=== PATIENT | male | born 1980 | race Caucasian/White ===

== ENCOUNTER 2018-10-17 17:39 | Emergency (ER) | payer MEDICAID, SELFPAY ==
[2018-10-17 17:44] VITALS: BP 150/101; PULSE 124; RESP 16; TEMP 37; O2SAT 99
--- NOTE | 2018-10-17 18:15 | ED.GENADUL_ITS ---
Discharge Plan Disposition Patient Disposition: HOME Condition: Stable Discharge Details Chief Complaint: DentalOral Clinical Impression: Dental infection Primary Care Provider: Christen Haley ED Provider: Charo Orozco Home Meds and New Rx's Prescriptions: New penicillin V potassium 500 mg tablet 500 mg PO QID Qty: 27 RF: 0 Discharge Instructions Instructions: Penicillin V (By mouth), Dental Abscess (ED) Additional Instructions: Encourage hydration. Tylenol and ibuprofen as needed for discomfort. May use hurricaine gel 4 times daily as needed. Please take the penicillin as prescribed, even if symptoms improve please take the entire course. If you develop fever/chills, swelling, increased pain or the new/worsening symptoms please seek care urgently once again. You will need follow-up with a dentist for definitive care, attached is a list of local dentist. Please call tomorrow to set up appointment. Discharge Data Discharge Date/Time-TO BE ENTERED AT DEPARTURE: 10/17/18 18:40 Medical Decision Making Patient is a 38-year-old male presents today with chief complaint of left upper dental pain. He reports that he has poor dentition has not been seen by dentist in several years. He denies any fevers or chills. States that this pain began yesterday. Has not taken anything for his discomfort. Has not had issue with this tooth historically. Patient has erythema and soft tissue swelling to the buccal side of the #10 tooth. There is no evidence of abscess, no fluctuance. He does have pain that radiates up into the left sinus. He is afebrile. He was noted to be tachycardic initially on evaluation with a heart rate of 124 patient admits that he is having panic attacks. After discussing treatment with the patient, his heart rate quickly came down he appears much more comfortable. I did offer Tylenol and ibuprofen which she is declined. Would prefer topical options, will order Hurricaine gel. Patient was given strict return precautions. I advised that he will need follow-up with a dentist for definitive care. Plan to treat with penicillin and treat pain topically. Patient was given strict return precautions. He will contact dentist tomorrow. List of local dentist is given to the patient. All questions and concerns were addressed and he is in agreement this plan. HPI General Mode of arrival: ambulatory . Date/Time Provider Initiated Documentation: 10/17/18 18:10 . Limitations to Documentation: no limitations . Information obtained by: patient and RN notes reviewed . History of Present Illness 38 year old M presents to the emergency department with the chief complaint of left upper dental pain, described as severe, with intensity ra angela at 10. Quality is described as stabbing, and is localized to the mouth. Patient reports no radiation. Patient started experiencing this day(s) (2) and it has been constant. No relieving factors improve symptom(s), No exacerbating factors reported . Patient notes no other symptoms.. Patient did receive the following treatments prior to arrival, none Related Data Home Medications Medication Instructions Recorded Confirmed penicillin V potassium 500 mg PO QID #27 tab 10/17/18 Previous Rx's Medication Instructions Recorded penicillin V potassium 500 mg PO QID #27 tab 10/17/18 Allergies Allergy/AdvReac Type Severity Reaction Status Date / Time chlordiazepoxide HCl Allergy Unverified 10/17/18 17:49 [From Librium] steroid Allergy Psychosis Uncoded 10/17/18 17:49 General Stated Complaint: DentalOral RUBEN: 4 Review of Systems Constitutional Reports as per HPI, Denies chills, Denies fatigue, Denies fever(s), Denies headache(s) and Denies poor appetite Eyes Denies change in vision and Denies irritation ENT Reports as per HPI, Reports dental pain, Denies dysphagia, Denies dizziness, Denies dry mouth, Denies ear discharge, Denies otalgia, Reports facial pain, Denies headache(s), Denies hoarseness, Denies lip swelling, Denies nasal congestion, Denies odynophagia and Denies sore throat Cardiovascular Reports as per HPI and Denies chest pain Respiratory Reports as per HPI and Denies cough Gastrointestinal Reports as per HPI, Denies dysphagia, Denies nausea, Denies odynophagia and Denies vomiting Integumentary/Breasts Reports as per HPI, Denies erythema, Denies rash and Denies skin pain Neurologic Reports as per HPI, Denies dizziness and Denies headache(s) Endocrine Denies fatigue Allergic/Immunologic Denies lip swelling [facility] Social History Smoking/Tobacco Use Status: Current-Occasional Tobacco Type: cigarettes Drug use: Daily Substance use type: marijuana Do you feel safe at home: Yes Do you feel safe in your relationship?: Yes Exam Const General: cooperative, healthy appearing, comfortable, no acute distress, well developed, well groomed and anxious Nutritional Appearance: average body habitus and well nourished Orientation: alert and awake [facility] Head: normal to inspection, normocephalic and atraumatic Ears: hearing grossly normal bilaterally, external ears normal and TM's normal bilaterally General nose exam: external nose normal and nares normal Face and sinus: normal facial exam, sinuses nontender and face symmetric Mouth: oral mucosae normal, lip normal, tongue normal, oropharynx normal, moist mucous membranes, no muffled voice, normal tongue, no trismus and No restricted motion Teeth and gingiva: abnormal tooth or associated gingiva (#10 tooth broken with swollen and erythematous gingiva) and poor dentition Throat: posterior oropharynx normal, tonsils normal and uvula midline Eyes General: appearance normal, both eyes and all related structures Neck Neck: normal visual inspection, full ROM, no lymphadenopathy, supple and no anterior neck swelling Resp Effort & Inspection: normal respiratory effort, able to speak in complete sentences and no respiratory distress Auscultation: clear to auscultation bilaterally, no rales, no rhonchi and no wheezes Cardio Rate: regular rate Rhythm: regular rhythm Heart Sounds: S1 normal and S2 normal Skin General skin exam: no rashes or lesions noted Trauma: no lacerations or abrasions Neuro General: alert and awake Cognition: normal cognition Speech: speech normal Gait: normal gait Psych Appearance: grossly normal and well kempt Mental Status: mental status grossly normal Speech and Movement: speech and movement normal Course Vital Signs Temperature 37 C 10/17/18 17:44 Pulse 124 H 10/17/18 17:44 Respiratory Rate 16 10/17/18 17:44 Blood Pressure 150/101 H 10/17/18 17:44 Pulse Oximetry 99 10/17/18 17:44 Temperature 37 C 10/17/18 17:44 Temperature Source Skin 10/17/18 17:44 Pulse 124 H 10/17/18 17:44 Respiratory Rate 16 10/17/18 17:44 Respiratory Effort Non-Labored 10/17/18 17:47 Blood Pressure 150/101 H 10/17/18 17:44 Pulse Oximetry 99 10/17/18 17:44 Oxygen Delivery Method Room Air 10/17/18 17:44 Oxygen Flow Rate 0 07/25/19 17:44 Pain Level 9 10/17/18 17:44
[2018-10-17] MEDS: Penicillin V POTASSIUM 500 MG TAB PO (18:33)
[2018-10-17] MEDS: Benzocaine 20% Gel 30 GM JAR MM (18:33)
== END 2018-10-17 18:40 | disposition home or self-care (01) ==
PROVIDERS: Emergency Provider Physician Assistant; PCP Nurse Practitioner
DX: K04.7 Periapical abscess without sinus (principal)
CPT/HCPCS: 99283

== ENCOUNTER 2019-02-12 11:30 | Outpatient (REF) | payer MEDICAID, SELFPAY ==
[2019-02-12 19:57] LABS: ALT 20 U/L (16-63); AST 12 U/L (15-37); Albumin 4.6 g/dL (3.4-5.0); Alkaline Phosphatase 61 U/L (46-116); Anion Gap 12.1 mmol/L (3-11); BUN 10 mg/dL (7-18); Bilirubin, Total 0.5 mg/dL (0.2-1.0); CO2 24.9 mmol/L (21.0-32.0); CREATININE 0.81 mg/dL (0.70-1.30); Calcium 9.4 mg/dL (8.5-10.1); Chloride 106 mmol/L (98-107); Glucose 97 mg/dL (74-106); Potassium 3.8 mmol/L (3.5-5.1); Sodium 143 mmol/L (136-145); TSH (W/Ref FT4) 0.83 uIU/mL (0.36-3.74); Total Protein 7.9 g/dL (6.4-8.2)
== END 2019-02-12 11:50 ==
LOC: NCHCN 11:30
PROVIDERS: PCP Nurse Practitioner; Visit Provider Nurse Practitioner
DX: F41.9 Anxiety disorder, unspecified (principal)
CPT/HCPCS: 80053; 84443

== ENCOUNTER 2021-02-22 16:33 | Outpatient (REF) | payer MEDICAID, SELFPAY | END 2021-02-22 16:34 | disposition home or self-care (01) | LOC: NCHCN 16:33 | PROVIDERS: PCP Nurse Practitioner; Visit Provider Physician Assistant | DX: Z20.822 Contact with and (suspected) exposure to COVID-19 (principal); J06.9 Acute upper respiratory infection, unspecified | CPT/HCPCS: U0003 ==

== ENCOUNTER 2022-05-03 21:33 | Emergency (ER) | payer MEDICAID, SELFPAY ==
[2022-05-03] VITALS (18 sets, daily range): BP systolic 124–155; BP diastolic 79–101; PULSE 79–99; RESP 10–26; TEMP 36.4; O2SAT 98–99
--- NOTE | 2022-05-03 21:55 | W.ED.GENAD ---
Discharge Plan Disposition Patient Disposition: Home Condition: Improving Discharge Details Clinical Impression: Alcohol intoxication, Anxiety Primary Care Provider: Swapnil Che ED Provider: David Eller Discharge Instructions Instructions: Alcohol Intoxication (ED), Anxiety (ED) Additional Instructions: At this time you do not wish to seek inpatient detox. You have been provided a medical screening examination and no obvious emergent process has been identified. A single dose of Librium and Ativan was given now and I have provided you a take-home pack of Librium, 4 tablets (25mg tabs) to take 1 tablet every 6 hours for moderate to severe alcohol withdrawal. Please watch for new or worsening symptoms and return to the ER for any concerns. Lastly, I would like you to contact your primary care provider tomorrow to discuss your ER visit and need for outpatient reevaluation. Medical Decision Making 41-year-old gentleman reports history of alcohol abuse, has been sober for 5 years, has been drinking hard liquor for approximately 1 week, last drink earlier today. Patient reports that when he was drinking heavily 5 years ago at that time he did have an alcohol withdrawal seizure. He is not interested in going to detox. Currently his CIWA score is 1. He is anxious otherwise he appears well, nontoxic. Will obtain IV access, give IV fluids, obtain routine screening laboratory values and request that the disaster recovery analyst come speak with the patient. He shows no evidence of severe DTs. Laboratory values reveal minimal nonspecific leukocytosis of 10.98, no anemia, no evidence of thrombocytopenia. Electrolytes unremarkable, creatinine 0.6 with a GFR of 123.60. LFTs unremarkable, lipase 43. Alcohol elevated at 184.0. The disaster recovery analyst was contacted and message was left for them to contact the patient tomorrow. On reevaluation patient is resting comfortably, heart rate of 81. He remains anxious but shows no signs of active withdrawal. Patient does not wish to seek alcohol detox. At this time it does not appear as though he meets inpatient criteria. He is quite comfortable with discharge home and following up with his PCP. He tells me that he is not allergic to Librium and when they gave him the Librium many years ago he was withdrawing more severely and it was simply not helping. For his anxiety now I will provide him 1 mg of Ativan and for his likely soon-to-be withdrawal symptoms I will provide 50 p.o. Librium. We will provide him with a take-home pack of Librium as well and encouraged that he contact his PCP tomorrow to discuss his ER visit, need for outpatient reevaluation, and potential continuation of outpatient detox. Given the patient has been sober for 5 years, has only been drinking for 1 week, alcohol of 184 now with a CIWA score of 1, low suspicion for severe withdrawal. Patient reports that he feels embarrassment for drinking but denies SI or HI, reports feeling safe. Standard discharge and return precautions were provided. Patient understands, is agreeable to this plan, and has no additional questions or concerns upon discharge. This documentation was generated using [employer] system, please disregard any oddities of phrase or misspellings. Medical Records Medical records reviewed: Yes I reviewed the patient's medical records. Lab Data Lab results reviewed: Yes I reviewed the patient's lab results. Labs: Laboratory Tests Range/Units 05/03/22 05/03/22 05/03/22 22:00 22:00 22:00 WBC (4.4-10.8) 10^3/uL 10.98 H RBC (4.36-5.78) 10^6/uL 4.83 Hgb (13.5-17.5) g/dL 14.3 Hct (40.0-50.0) % 42.5 MCV (80-95) fL 88 MCH (27.0-33.0) pg 29.6 MCHC (32.0-36.0) % 33.6 RDW (11.8-14.1) % 14.2 H Plt Count (130-400) 10^3/uL 383 MPV (8.0-11.0) fL 8.6 Immature Gran % 0.4 Neutrophils % 54.4 Lymphocytes % 37.3 Monocytes % 7.1 Eosinophils % 0.4 Basophils % 0.4 Nucleated RBC % (0.0-0.3) % 0.0 Absolute Neutrophils (1.2-6.7) 10^3/uL 5.97 Absolute Lymphocytes (1.2-3.4) 10^3/uL 4.10 H Absolute Monocytes (0.1-0.8) 10^3/uL 0.78 Absolute Eosinophils (0.0-0.7) 10^3/uL 0.04 Absolute Basophils (0.0-0.2) 10^3/uL 0.04 Sodium (136-145) mmol/L 143 Potassium (3.5-5.1) mmol/L 3.6 Chloride (98-107) mmol/L 105 Carbon Dioxide (21.0-32.0) mmol/L 25.9 Anion Gap (3-11) mmol/L 12.1 H BUN (7-18) mg/dL 6 L Creatinine (0.70-1.30) mg/dL 0.6 L Est GFR (CKD-EPI 2020) (mL/min/1.73m2) 123.60 Glucose (74-106) mg/dL 101 Calcium (8.5-10.1) mg/dL 8.6 Total Bilirubin (0.2-1.0) mg/dL 0.2 AST (15-37) U/L 15 ALT (16-63) U/L 17 Alkaline Phosphatase (46-116) U/L 67 Total Protein (6.4-8.2) g/dL 7.3 Albumin (3.4-5.0) g/dL 3.6 Lipase (16-77) U/L 43 Ethyl Alcohol (<10) mg/dL 184.0 H HPI General Mode of arrival: ambulatory. Date/Time Provider Initiated Documentation: 05/03/22 21:34. Limitations to Documentation: no limitations. Information obtained by: patient. HPI Narrative: This is a 41-year-old gentleman, who reports history of alcohol abuse but has been sober for the past 5 years, increased stress, has been drinking hard alcohol x1 week, approximately 32 ounces today, last drink sometime this early afternoon. He reports that 5 years ago he was drinking much more heavily, has been drinking for at least 10 years, and at that time had severe withdrawals, alcohol withdrawal seizure. He reports anxiety and concern that he will have more withdrawal symptoms but at this time does not really feel as though he is withdrawing severely. He denies recent illness or trauma. He denies SI or HI. Denies any hallucinations. Denies any drug use. Patient reports that he is not interested in going to detox, does not feel as though this would be necessary. Related Data Allergies Allergy/AdvReac Type Severity Reaction Status Date / Time chlordiazepoxide HCl Allergy Unverified 10/17/18 17:49 [From Librium] steroid Allergy Psychosis Uncoded 10/17/18 17:49 General Stated Complaint: ETOHWithdr RUBEN: 3 Review of Systems Constitutional Constitutional: Denies fever(s), Denies headache(s) and Denies weakness Eyes Eyes: Denies change in vision ENT Ears, Nose, Mouth, and Throat: Denies headache(s) and Denies neck pain Cardiovascular Cardiovascular: Denies chest pain and Denies dyspnea Respiratory Respiratory: Denies cough and Denies dyspnea Gastrointestinal Gastrointestinal: Denies abdominal pain, Denies nausea and Denies vomiting Musculoskeletal Musculoskeletal: Denies back pain, Denies neck pain, Denies numbness and Denies tingling Integumentary/Breasts Skin/Breast: Denies rash Neurologic Neurologic: Denies headache(s), Denies numbness, Denies tingling and Denies weakness Psychiatric Psychiatric: Reports anxiety PFSH All Active Problems (Updated 05/03/22 @ 22:49 by LILA Nj) Alcohol intoxication (Acute) Anxiety (Chronic) Social History Smoking/Tobacco Use Status: Current-Occasional Tobacco Type: cigarettes Smoking risk assessment performed?: Yes Alcohol Intake: current Alcohol Intake frequency: 3 or more drinks per day Alcohol type: beer Drug use: Never Substance use type: marijuana Do you feel safe at home: Yes Do you feel safe in your relationship?: Yes Exam Const General: cooperative, healthy appearing, comfortable, no acute distress and anxious Orientation: alert, awake and oriented x3 HENMT Head: normal to inspection, normocephalic and atraumatic Face and sinus: normal facial exam Mouth: moist mucous membranes Eyes Conjunctivae: conjunctivae normal Neck Neck: normal visual inspection, full ROM, no meningeal signs, trachea midline and supple Resp Effort & Inspection: normal respiratory effort and able to speak in complete sentences Auscultation: clear to auscultation bilaterally Cardio Rate: regular rate Rhythm: regular rhythm GI Inspection: normal to inspection Palpation: soft, not firm, no guarding and nontender Auscultation: normal bowel sounds Back/Spine/Pelvis Back: No back tenderness Skin General skin exam: no rashes or lesions noted Neuro General: patient alert, patient awake, patient oriented x3, moves all extremities and no focal motor deficits Cognition: normal cognition Speech: speech normal Gait: normal gait Motor: muscle tone normal throughout Sensory Exam: no sensory deficits noted Extrem General: normal to inspection, full ROM and capillary refill normal Psych Appearance: grossly normal Mental Status: mental status grossly normal Speech and Movement: speech and movement normal Mood: anxious mood Affect: anxious affect Attitude: cooperative Thought Process: normal Thought Content: normal Insight: fair Judgment: fair Course Vital Signs Vital signs: Vital Signs Temperature 36.4 C 05/03/22 21:36 Pulse 94 H 05/03/22 21:36 Respiratory Rate 18 05/03/22 21:36 Blood Pressure 137/97 H 05/03/22 21:36 Pulse Oximetry 99 05/03/22 21:36 Temperature 36.4 C 05/03/22 21:36 Temperature Source Oral 05/03/22 21:36 Pulse 94 H 05/03/22 21:36 Respiratory Rate 18 05/03/22 21:36 Respiratory Effort 05/03/22 21:43 Respiratory Pattern Normal 05/03/22 21:43 Blood Pressure 137/97 H 05/03/22 21:36 Blood Pressure Position Sitting 05/03/22 21:36 Pulse Oximetry 99 05/03/22 21:36 Oxygen Delivery Method Room Air 05/03/22 21:36 Oxygen Flow Rate 0 05/03/22 21:36 Pain Level 0 05/03/22 21:36 PAWSS Have you Been Recently Intoxicated or Drunk Within the Last 30 days?: Yes Have you Ever Experienced Previous Episodes of Alcohol Withdrawal?: Yes Have you ever Experienced Withdrawal Seizures?: Yes Have you ever Experienced Delirium Tremens(DT)s?: Yes Have you ever undergone Alcohol Rehabilitation Treatment (i.e, inpt ot outpatient treatment programs)?: Yes Have you ever Experienced Blackouts?: Yes Have you ever Combined Alcohol with other Downers within the last 90 days?: No Have you ever Combined Alcohol with any other Substance of Abuse during the last 90 days?: No Positive Blood Alcohol level on Presentation? [PCS.BAL]: No Evidence of Increased Autonomic Activity (i.e. HR>120, tremor, sweating, agitation, nausea)?: No Result: 6
[2022-05-03] MEDS: Normal Saline 1,000 ML 1000 ML IV (22:12)
[2022-05-03 22:15] LABS: Abs Immature Grans 0.04 10^3/uL (0.0-0.06); Absolute Basophil Count 0.04 10^3/uL (0.0-0.2); Absolute Eosinophil Count 0.04 10^3/uL (0.0-0.7); Absolute Monocyte Count 0.78 10^3/uL (0.1-0.8); Basophils % 0.4; Eosinophils % 0.4; HCT 42.5 % (40.0-50.0); HGB 14.3 g/dL (13.5-17.5); Immature Grans % 0.4; Lymphocytes % 37.3; MCH 29.6 pg (27.0-33.0); MCHC 33.6 % (32.0-36.0); MCV 88 fL (80-95); MPV 8.6 fL (8.0-11.0); Monocytes % 7.1; Neutrophils % 54.4; Platelet Count 383 10^3/uL (130-400); RBC 4.83 10^6/uL (4.36-5.78); RDW 14.2 % (11.8-14.1); RDW-SD 45.9 fL; WBC 10.98 10^3/uL (4.4-10.8)
[2022-05-03 22:16] LABS: Absolute Neutrophil Count 5.97 10^3/uL (1.2-6.7)
[2022-05-03 22:30] LABS: ALT 17 U/L (16-63); AST 15 U/L (15-37); Albumin 3.6 g/dL (3.4-5.0); Alkaline Phosphatase 67 U/L (46-116); Anion Gap 12.1 mmol/L (3-11); BUN 6 mg/dL (7-18); Bilirubin, Total 0.2 mg/dL (0.2-1.0); CO2 25.9 mmol/L (21.0-32.0); CREATININE 0.6 mg/dL (0.70-1.30); Calcium 8.6 mg/dL (8.5-10.1); Chloride 105 mmol/L (98-107); Glucose 101 mg/dL (74-106); Lipase 43 U/L (16-77); Potassium 3.6 mmol/L (3.5-5.1); Sodium 143 mmol/L (136-145); Total Protein 7.3 g/dL (6.4-8.2)
[2022-05-03] MEDS: LORazepam 1 MG TAB PO (22:56)
[2022-05-03] MEDS: chlordiazePOXIDE 25 MG CAP 50 MG PO (22:57)
== END 2022-05-03 23:25 | disposition home or self-care (01) ==
PROVIDERS: Emergency Provider Physician Assistant; PCP Physician Assistant
DX: F10.120 Alcohol abuse with intoxication, uncomplicated (principal); D72.829 Elevated white blood cell count, unspecified; F41.9 Anxiety disorder, unspecified; Y90.6 Blood alcohol level of 120-199 mg/100 ml
CPT/HCPCS: 80053; 83690; 96360; 99284; 80320; 85025

== ENCOUNTER 2024-08-19 12:00 | Emergency (ER) | payer SELFPAY ==
[2024-08-19 12:01] VITALS: BP 159/107; PULSE 88; RESP 16; TEMP 37.2; O2SAT 100
[2024-08-19 12:05] VITALS: BP 159/107; PULSE 88; RESP 16; TEMP 37.2; O2SAT 100
[2024-08-19] MEDS: Bupivacaine 0.5% Pres-Free 30 ML VIAL IJ (15:00)
[2024-08-19] MEDS: Benzocaine 20% Gel 30 GM JAR MM (15:00)
--- NOTE | 2024-08-20 08:09 | W.ED.GENAD ---
Discharge Plan Disposition Patient Disposition: Home Condition: Stable Discharge Details Clinical Impression: Pain, dental Primary Care Provider: Swapnil Che ED Provider: Ruth Milligan Home Meds and New Rx's Prescriptions: New penicillin V potassium 500 mg tablet 500 mg PO QID 10 Days Qty: 40 0RF Discharge Instructions Instructions: Dental Pain (DC) Additional Instructions: Take the antibiotic as prescribed yogurt daily while on antibiotic Motrin and Tylenol as needed for pain please have your blood pressure rechecked by primary care physician follow-up with dentist this week and return earlier should you have new or worsening complaints Referrals: Swapnil Che [Primary Care Provider] - 2 days Discharge Data Discharge Date/Time-TO BE ENTERED AT DEPARTURE: 08/19/24 15:01 HPI General Date/Time Provider Initiated Documentation: 08/19/24 13:49. HPI Narrative: The patient is a 44-year-old male with dental pain in the left lower molar for 2 weeks after fracturing it. Pain worsened last evening; ibuprofen and Tylenol provided no relief. He has not scheduled an appointment with [facility]. No fever or chills. Seeking antibiotics. Related Data Home Medications ?Medication ?Instructions ?Recorded ?Confirmed penicillin V potassium 500 mg 500 mg PO QID 10 days #40 tabs 08/19/24 tablet Previous Rx's ?Medication ?Instructions ?Recorded penicillin V potassium 500 mg 500 mg PO QID 10 days #40 tabs 08/19/24 tablet Allergies Allergy/AdvReac Type Severity Reaction Status Date / Time steroid Allergy Psychosis Uncoded 08/19/24 12:04 General Stated Complaint: DentalOral RUBEN: 4 Exam Narrative Exam Narrative: General Appearance: Alert and oriented, in no acute distress. Vital signs: Within normal limits. HEENT: Fractured number 17 tooth without deep space infection or abscess. Patent oropharynx, midline uvula, no trismus, no submandibular lymphadenopathy, no Parmjit's angina. Phonation intact. Respiratory: Within normal limits. Skin: Warm and dry, no rash. Neurological: Normal. Course Vital Signs Vital signs: Vital Signs Temperature 37.2 C 08/19/24 12:01 Pulse 88 08/19/24 12:01 Respiratory Rate 16 08/19/24 12:01 Blood Pressure 159/107 H 08/19/24 12:01 Pulse Oximetry 100 08/19/24 12:01 Temperature 37.2 C 08/19/24 12:05 Pulse 88 08/19/24 12:05 Respiratory Rate 16 08/19/24 12:05 Blood Pressure 159/107 H 08/19/24 12:05 Pulse Oximetry 100 08/19/24 12:05 Oxygen Delivery Method Room Air 08/19/24 12:05 Oxygen Flow Rate 0 08/19/24 12:05 Pain Level 9 08/19/24 12:05 Medical Decision Making Procedure: Performed inferior alveolar nerve block with 2 cm? of 0.5% Marcaine on the left side. Patient tolerated well with good relief. Initial Assessment: 44-year-old male with dental pain in the left lower molar, fractured approximately 2 weeks ago. Pain worsened last evening, unrelieved by ibuprofen and Tylenol. No fever or chills. Patient alert and oriented, in no acute distress. Fractured #17 without deep space infection or abscess. Oropharynx patent, uvula midline, no trismus, no submandibular lymphadenopathy, no Parmjit's angina. Phonation intact. ED Course: - Inferior alveolar nerve block performed with 2 cm? of 0.5% Marcaine on left. - Patient tolerated procedure well. - Prescribed penicillin. - Encouraged follow-up with dentist to schedule an appointment tomorrow. - Recommended [id number] care with Motrin and Tylenol. - Return precautions reviewed and patient expressed understanding. Final Assessment: Patient with dental pain due to fractured #17 tooth. No signs of deep space infection or abscess. Pain managed with inferior alveolar nerve block and penicillin prescribed. Follow-up with dentist advised. Clinical Impression: - Dental pain - Fractured #17 tooth Disposition: - Discharge - Follow-Up: Dentist appointment tomorrow MDM Components Evaluation: - Number of Differential Diagnoses or Management Options: Dental pain, fractured tooth - Amount and Complexity of Data Reviewed: Physical examination findings - Risk of Complication and Morbidity or Mortality: Low risk due to lack of infection or abscess Quality:SDOH Health Related Social Needs: No Data to Display PFSH All Active Problems (Updated 08/19/24 @ 14:53 by LILA Hernandez) Pain, dental (Acute) Social History Smoking/Tobacco Use Status: Current-Occasional Tobacco Type: cigarettes Smoking risk assessment performed?: Yes Alcohol Intake: current Alcohol Intake frequency: a few times a week Alcohol type: beer Drug use: Never Do you feel safe at home: Yes Do you feel safe in your relationship?: Yes
== END 2024-08-19 15:01 | disposition home or self-care (01) ==
PROVIDERS: Emergency Provider Physician Assistant; PCP Physician Assistant
DX: R68.84 Jaw pain (principal); K08.89 Other specified disorders of teeth and supporting structures
CPT/HCPCS: 64400; J0665